=== PATIENT | male | born 2000 | race Caucasian/White ===

== ENCOUNTER 2018-10-14 12:22 | Emergency (ER) | payer MEDICAID ==
[~2018-10-14] VITALS: Ht 185.4 cm; Wt 73.0 kg
--- NOTE | 2018-10-14 12:33 | NUR ---
PT BIBRA FROM BUS STOP, PT C/O RT HIP PAIN AND RT EAR LAC; PT AAOX4, PT ON MONITOR, VSS, NAD NOTED, PENDING ER PROVIDER JESSIAL
[2018-10-14] MEDS ORDERED: LIDOCAINE 1% INJ 50 ML MDV IJ ONE (12:43)
[2018-10-14] MEDS ORDERED: IV NS 0.9% 1,000 ML BAG IV ONE (13:00)
[2018-10-14 13:01] LABS: BASOPHILS % (AUTO) 0.3 % (0.0-2.0); EOSINOPHILS % (AUTO) 0.4 % (0.0-6.0); HEMATOCRIT 44 % (39-51); LYMPHOCYTES # (AUTO) 1.2 /CMM (0.8-4.8); MEAN CORPUSCULAR HGB CONC 34 g/dl (31.0-36.0); MEAN CORPUSCULAR VOLUME 88 fL (80-96); MONOCYTES # (AUTO) 0.7 /CMM (0.1-1.30); MONOCYTES % (AUTO) 8.1 % (2.0-12.0); NEUTROPHILS % (AUTO) 78.2 % (43.0-81.0); PLATELET COUNT (AUTO) 190 /CMM (150-450); RED BLOOD CELL COUNT(AUTO) 4.99 MIL/uL (4.5-6.0)
[2018-10-14] MEDS ORDERED: BUPIVACAINE 0.5 % PF 150 MG/30 ML VIAL ONE (13:02)
[2018-10-14 13:11] LABS: CALCIUM, SERUM 8.5 mg/dL (8.5-10.1); CREATININE 0.8 mg/dL (0.6-1.3); POTASSIUM 3.7 mmol/L (3.5-5.1)
[2018-10-14 13:17] LABS: ALBUMIN 3.9 g/dL (3.4-5.0); BILIRUBIN,DIRECT 0.1 mg/dL (0.0-0.2); BILIRUBIN,TOTAL 0.3 mg/dL (0.2-1.0); TOTAL PROTEIN, SERUM 7.2 g/dL (6.4-8.2)
[2018-10-14] MEDS ORDERED: BUPIVACAINE 0.5 % PF 150 MG/30 ML VIAL IJ ONE (13:30)
[2018-10-14] MEDS ORDERED: MORPHINE SULFATE INJ 2 MG/ML DISP.SYRIN IV ONE ×3 (13:30→19:30)
[2018-10-14] MEDS ORDERED: TDAP [DIPH/PERTUSSIS/TET] 0.5 ML VIAL IM ONE ×2 (13:30→14:34)
[2018-10-14] MEDS ORDERED: ONDANSETRON HCL/PF 4 MG/2 ML VIAL IV ONE (13:30)
[2018-10-14] MEDS ORDERED: ONDANSETRON HCL/PF 4 MG/2 ML VIAL ONE (13:33)
[2018-10-14] MEDS ORDERED: MORPHINE SULFATE INJ 4 MG/ML DISP.SYRIN ONE ×3 (13:33→19:27)
--- NOTE | 2018-10-14 15:26 | NUR ---
CALLED NURSING SUP. FOR [facility] BED
--- NOTE | 2018-10-14 15:30 | NUR ---
CALLED [facility] EDUCATION COORDINATOR, TRANSFERRED CALL TO [facility] POLICE OFFICER
--- NOTE | 2018-10-14 17:17 | NUR ---
PT REFUSES TO GET UP, STATES "ITS TOO PAINFUL", GUILLERMO WEASAND TRIMMER AWARE
--- NOTE | 2018-10-14 17:27 | NUR ---
CALLED [facility] TRANSFER LINE AND SPOKE WITH ELIZABETH. FAXING CLINICALS TO [phone].
--- NOTE | 2018-10-14 17:28 | NUR ---
CALLED [facility] TRANSFER LINE AND SPOKE WITH GÓMEZ. THEY ARE AT CAPACITY AND UNABLE TO ACCEPT TRANSFER AT THIS TIME.
--- NOTE | 2018-10-14 18:11 | NUR ---
CALLED [facility] AND WAS INFORMED THEY CURRENTLY HAVE NO BEDS BUT WILL UPDATE US
--- NOTE | 2018-10-14 18:46 | NUR ---
SPOKE WITH KWASI AT [facility]. PER KWASI THEIR ORTHOPEDIST RFP WRITER AT [facility] IS UNABLE TO ACCOMMODATE AN ACETABULAR FX AT THIS TIME
--- NOTE | 2018-10-14 18:55 | NUR ---
CALLED [facility] ER AND SPOKE WITH THE SOLDERING TECHNICIAN. FAXED CT ABDOMEN/PELVIS TO [facility] AND AWAITING CALL BACK
--- NOTE | 2018-10-14 19:39 | NUR ---
CALLED [facility] TRANSFER LINE AND WAS INFORMED THEY ARE CURRENTLY AT CAPACITY FOR ADULT TRANSFERS
--- NOTE | 2018-10-14 21:06 | NUR ---
PT REFUSED TO BE TRASNFERED FOR HIGHER LEVEL OF CARE. TROUBLE LOCATER DEGRASSE MADE AWARE. TROUBLE LOCATER DEGRASSE AWARE AND GOING TO SPEAK TO PT.
[2018-10-14] MEDS ORDERED: IBUPROFEN 600 MG TABLET PO ONE ×2 (22:00→22:10)
[2018-10-14] MEDS ORDERED: oxyCODONE/APAP (5/325 MG) 1 UDTAB TABLET PO ONE (22:00)
[2018-10-14] MEDS ORDERED: oxyCODONE/APAP (5/325 MG) 1 UDTAB TABLET ONE (22:10)
--- NOTE | 2018-10-14 23:30 | NUR ---
RECEIVED REPORT FROM JAIR ABARCA ([facility]) FOR [facility]. PT RESTING IN BED WITH NO S/S OF ACUTE DISTRESS NOTED.
--- NOTE | 2018-10-15 00:32 | NUR ---
IT WAS EXPLAINED TO THE PATIENTS MOTHER THAT THE PATIENT REFUSES TO BE TRASNFERRED, HOWEVER, THE MOTHER STATES SHE "WANTS HIM TRANSFERRED TO [facility] WITH 911". THE MOTHER STATES SHE HAD ASKED THE PARAMEDICS TO TRANSPORT THE PATIENT TO [facility] BUT SHE DOES "NOT KNOW WHY HE WAS BROUGHT HERE". PT YELLING TO MOM "MOM JUST SHUT UP, I DONT WANT TO GO TO [place] AND HAVE SURGERY". PATIENT AND HIS MOTHER WERE LEFT ALONE TO COMMUNICATE WHAT THEY WOULD LIKE TO DO IN REGARDS TO THE PATIENTS CARE.
[2018-10-15 00:34] VITALS: BP 121/67
--- NOTE | 2018-10-15 00:40 | NUR ---
PT'S MOTHER BEDSIDE INTERUTPING PATIENT CARE AND SPEAKING OVER WHAT THE PATIENT DESIRES. SECURITY WAS PAGED TO ESCORT PATIENTS MOTHER OUT TO WAITING ROOM.
--- NOTE | 2018-10-15 00:51 | NUR ---
Patient discharged to home in stable condition. Written and verbal after care instructions given. Patient verbalizes understanding of instruction.
--- NOTE | 2018-10-15 00:52 | NUR ---
Patient does not wish to proceed with medical care recommended by DEEP WELL CONTRACTOR. (DEGRASSE). Patient given information related to possible complications, up to and including , which could occur as a result of leaving the hospital at this time. Patient verbalizes understanding of risks involved due to leaving against medical advice. Patient has signed AMA form.
--- NOTE | 2018-10-15 00:52 | NUR ---
PATIENT WAS WHEELCHAIRED OUT TO WAITING ROOM BY SECURITY AND RN. PATIENTS MOTHER WAITING IN THE WAITING ROOM.
== END 2018-10-15 01:03 | disposition left against medical advice (07) ==
LOC: ER 12:26 → UNDOADMIN 16:23 → MED 16:23 → ER 10-15 01:03
DX: S32.491A Other specified fracture of right acetabulum, initial encounter for closed fracture (principal); S01.311A Laceration without foreign body of right ear, initial encounter; F19.10 Other psychoactive substance abuse, uncomplicated; Z59.0 Homelessness; W18.39XA Other fall on same level, initial encounter; Y93.89 Activity, other specified; Y92.480 Sidewalk as the place of occurrence of the external cause; Y99.8 Other external cause status
CPT/HCPCS: 12011; 36415; 70450; 72125; 74176; 80048; 80076; 80307; 85025; 85730; 86850; 96374; 96375; 96376; 99284; A4606; A6402; A6403; J2270 ×3; J2405; J3490 ×2; J7030; 90715; G0480

== ENCOUNTER 2020-04-15 10:15 | Emergency (ER) | payer SELFPAY ==
[~2020-04-15] VITALS: Ht 175.3 cm; Wt 77.1 kg
--- NOTE | 2020-04-15 10:20 | NUR ---
[place] [address] snorted unknown "white powder", 4mg narcan given via intra-nasal by ems SWITCHBOARD WIRER, pinpoint pupil. Patient lethargic, reponsive to stimuli. Changed into gown, attached to the sample case porter. Needs attended, kept comfortable.
[2020-04-15] MEDS ORDERED: IV NS 0.9% 1,000 ML BAG IV ONE (10:30)
[2020-04-15 10:46] LABS: BASOPHILS % (AUTO) 0.2 % (0.0-2.0); EOSINOPHILS % (AUTO) 0.1 % (0.0-6.0); HEMATOCRIT 48 % (39-51); HEMOGLOBIN 16.5 g/dL (13.5-17.5); LYMPHOCYTES % (AUTO) 13.2 % (20.0-44.0); MEAN CORPUSCULAR HGB CONC 34 g/dl (31.0-36.0); MEAN CORPUSCULAR VOLUME 95 fL (80-96); MONOCYTES # (AUTO) 0.7 /CMM (0.1-1.30); MONOCYTES % (AUTO) 9.2 % (2.0-12.0); NEUTROPHILS # (AUTO) 6.1 /CMM (1.8-8.9); NEUTROPHILS % (AUTO) 77.3 % (43.0-81.0); PLATELET COUNT (AUTO) 238 /CMM (150-450); WHITE BLOOD COUNT (AUTO) 7.9 K/uL (4.3-11.0)
[2020-04-15 11:00] LABS: APPEARANCE,URINE Clear (CLEAR); BILIRUBIN,URINE Negative (NEGATIVE); BLOOD, URINE Negative Ery/uL (NEGATIVE); COLOR,URINE Yellow (YELLOW); KETONES,URINE Negative (NEGATIVE); LEUKOCYTE ESTERASE ,URINE Negative (NEGATIVE); NITRITE, URINE Negative (NEGATIVE); PROTEIN,URINE 30 mg/dl (NEGATIVE); UGLUCOSE Negative (NEGATIVE); UROBILINOGEN,URINE 0.2 EU/dL (0.2)
[2020-04-15 11:04] LABS: BACTERIA,URINE Few /HPF (None Seen); SQUAMOUS EPITHELIAL CELL,UR Few /HPF (None Seen)
[2020-04-15 11:20] LABS: ALANINE AMINOTRANSFERASE 34 U/L (12-78); ALBUMIN 3.9 g/dL (3.4-5.0); ALCOHOL, BLOOD 92 mg/dL (0-0); ALKALINE PHOSPHATASE 124 U/L (46-116); ASPARTATE AMINOTRANSFERASE 29 U/L (15-37); BILIRUBIN,DIRECT 0.1 mg/dL (0.0-0.2); BILIRUBIN,TOTAL 0.3 mg/dL (0.2-1.0); CARBON DIOXIDE 27 mmol/L (21-32); CHLORIDE 102 mmol/L (98-107); CREATININE 0.8 mg/dL (0.6-1.3); GLUCOSE 90 mg/dL (74-106); POTASSIUM 3.8 mmol/L (3.5-5.1); SODIUM SERUM 140 mmol/L (136-145); TOTAL PROTEIN, SERUM 7.1 g/dL (6.4-8.2); UREA NITROGEN, BLOOD 6 mg/dL (7-18)
[2020-04-15 11:22] LABS: ACETAMINOPHEN < 10 ug/ml (10-30); SALICYLATE 0.5 mg/dL (2.8-20.0)
--- NOTE | 2020-04-15 13:50 | NUR ---
PATIENT AWAKE, ALERT AND ORIENTED X4, AMBULATORY WITH STEADY GAIT, WALKED TO RESTROOM. NO DISTRESS NOTED. PATIENT DENIES SI/HI. NEEDS ATTENDED. INFORMED DR. FREEMAN.
--- NOTE | 2020-04-15 15:00 | NUR ---
Ambulatory with steady gait. IV removed. Catheter intact and site benign. Pressure and 4x4 applied to site. No bleeding noted. Patient given written and verbal discharge instructions. Patient verbalizes understanding of instructions. Patient is ambulatory with steady gait. Refuses offer of longterm placement. Patient given list of available shelters in surrounding area.
[2020-04-15 15:08] VITALS: BP 110/70
== END 2020-04-15 15:08 | disposition home or self-care (01) ==
LOC: ER 10:17
DX: T43.621A Poisoning by amphetamines, accidental (unintentional), initial encounter (principal); F19.10 Other psychoactive substance abuse, uncomplicated; R94.31 Abnormal electrocardiogram [ECG] [EKG]; Z98.890 Other specified postprocedural states; Z59.0 Homelessness; Y92.89 Other specified places as the place of occurrence of the external cause
CPT/HCPCS: 36415; 71045; 80048; 80076; 80305; 80307; 80329; 81001; 84484; 85025; 93005; 96360; 99285; G0480; J7030; 81000-TC

== ENCOUNTER 2020-05-05 10:58 | Emergency (ER) | payer MEDICAID ==
[~2020-05-05] VITALS: Ht 175.3 cm; Wt 77.1 kg
--- NOTE | 2020-05-05 11:10 | NUR ---
jeri and lapd, from street, suicidal ideation "i want to overdose on drugs". On room air, breathing evenly and unlabored. sitter at bedside for constant monitoring. Will continue to monitor accordingly.
--- NOTE | 2020-05-05 11:11 | NUR ---
called security for wanding
[2020-05-05 11:40] LABS: BASOPHILS # (AUTO) 0.1 /CMM (0.0-0.2); BASOPHILS % (AUTO) 0.9 % (0.0-2.0); EOSINOPHILS % (AUTO) 1.8 % (0.0-6.0); HEMATOCRIT 52 % (39-51); HEMOGLOBIN 17.9 g/dL (13.5-17.5); LYMPHOCYTES # (AUTO) 1.2 /CMM (0.8-4.8); LYMPHOCYTES % (AUTO) 19.3 % (20.0-44.0); MEAN CORPUSCULAR HGB CONC 35 g/dl (31.0-36.0); MEAN CORPUSCULAR VOLUME 95 fL (80-96); MONOCYTES # (AUTO) 0.4 /CMM (0.1-1.30); MONOCYTES % (AUTO) 6.6 % (2.0-12.0); NEUTROPHILS # (AUTO) 4.5 /CMM (1.8-8.9); NEUTROPHILS % (AUTO) 71.4 % (43.0-81.0); PLATELET COUNT (AUTO) 227 /CMM (150-450); RED BLOOD CELL COUNT(AUTO) 5.41 MIL/uL (4.5-6.0); WHITE BLOOD COUNT (AUTO) 6.3 K/uL (4.3-11.0)
[2020-05-05 11:46] LABS: CALCIUM, SERUM 8.3 mg/dL (8.5-10.1); CARBON DIOXIDE 27 mmol/L (21-32); CHLORIDE 103 mmol/L (98-107); CREATININE 0.9 mg/dL (0.6-1.3); GLUCOSE 83 mg/dL (74-106); POTASSIUM 3.5 mmol/L (3.5-5.1); SODIUM SERUM 141 mmol/L (136-145); UREA NITROGEN, BLOOD 9 mg/dL (7-18)
[2020-05-05 11:52] LABS: ACETAMINOPHEN 0 ug/ml (10-30); ALANINE AMINOTRANSFERASE 126 U/L (12-78); ALBUMIN 3.9 g/dL (3.4-5.0); ALCOHOL, BLOOD 257 mg/dL (0-0); ALKALINE PHOSPHATASE 152 U/L (46-116); ASPARTATE AMINOTRANSFERASE 149 U/L (15-37); BILIRUBIN,DIRECT 0.3 mg/dL (0.0-0.2); BILIRUBIN,TOTAL 0.7 mg/dL (0.2-1.0); SALICYLATE < 0.2 mg/dL (2.8-20.0); TOTAL PROTEIN, SERUM 7.5 g/dL (6.4-8.2)
--- NOTE | 2020-05-05 12:30 | NUR ---
ASSESSED PT ON BED ASLEEP EASILY AROSUABLE. NOT IN RESPIRATORY DISTRESS, V/S STABLE. KEPT RESTED AND COMFORTABLE. WILL CONTINUE TO MONITOR.
--- NOTE | 2020-05-05 13:00 | NUR ---
FOOD TRAY PROVIDED.
--- NOTE | 2020-05-05 14:47 | NUR ---
SW attempted to speak with this patient at bedside. Patient was not cooperative at this time. SW to return to assess the patient.
--- NOTE | 2020-05-05 16:15 | NUR ---
This SW called patient's mother Gauri to provide patient's social security number as patient does not remember it. SW was unable to speak with her but left voicemail to this SW direct number and ED directly.
--- NOTE | 2020-05-05 16:22 | NUR ---
SW met with the patient at bedside. Patient was asleep and easily arousable when called by his name. Patient was alert and oriented x4, and receptive to speaking with this SW. Patient was lying in bed but turned to face this SW. Patient has a low tone of voice stating, I am not feeling that well. Patient was in some visible discomfort by closing his eyes and moaning when patient moved too fast. Patient was placed on a 5150 hold by [employer]. Patient is a 19-year-old male. Per patient, he is currently residing with his girlfriend stating, "I don't really want to talk about that." Per patient, he does not want anyone to know where he is right now. Per patient, he called 911 himself because he is feeling suicidal. Per patient, plan is to overdose on drugs, mainly heroin but stated I use everything so whatever comes my way first. Per patient, he has been using heroin for a few months now but could not remember exactly when he started. Patient did not report to this SW of mental health diagnosis. Patient denies auditory and visual hallucinations. Patient denies homicidal ideation. Per patient, he does not work but does receive [employer]. Per patient, could not remember how much he was receiving because he lost his [employer] card. This SW and patient discussed treatment plan. Per patient, he wants to go to a mental health hospital. This SW discussed with the patient voluntary treatment at [facility]. Patient agreeable to voluntary treatment. Plan: SW to follow-up with ER Admitting about patients eligibility regarding presumptive Medical. Addendum: 05/05/20 at 1623 by EDWINA SCHUMACHER SW Patient provided verbal consent to speak to mother Gauri for patient's social security number.
--- NOTE | 2020-05-05 16:23 | NUR ---
This SW spoke with Dr. Nino regarding this patient. This SW assessed the patient and patient is currently feeling suicidal to overdose on drugs. Patient is on a 5150 hold and will need to be cleared by crisis team. Patient agreeable to voluntary treatment at [facility]. Dr. Nino in agreement that patient will need to be seen by crisis team following SW attempt to retrieve Social Security number for insurance purposes.
--- NOTE | 2020-05-05 16:28 | NUR ---
Maintenance Service Supervisor contacted ER Admitting, their report from speaking with the patient, he does not know his social security number and no record of his social security from prior visits. SW to attempt contacting patient mother again .
[2020-05-05 16:45] LABS: APPEARANCE,URINE Clear (CLEAR); BILIRUBIN,URINE Negative (NEGATIVE); BLOOD, URINE Negative Ery/uL (NEGATIVE); COLOR,URINE Yellow (YELLOW); KETONES,URINE 15 (NEGATIVE); LEUKOCYTE ESTERASE ,URINE Negative (NEGATIVE); NITRITE, URINE Negative (NEGATIVE); PROTEIN,URINE 30 mg/dl (NEGATIVE); UGLUCOSE Negative (NEGATIVE); UROBILINOGEN,URINE 0.2 EU/dL (0.2)
--- NOTE | 2020-05-05 16:47 | NUR ---
This SW called patient's mother Gauri to provide patient's social security number as patient does not remember it. SW was unable to speak with her but left voicemail with ED contact information.
--- NOTE | 2020-05-05 16:50 | NUR ---
This SW received a call from patient's mother Gauri . Gauri provided SW with patient's social security number. SW to provide to ED Admitting for presumptive medical.
[2020-05-05 17:01] LABS: BACTERIA,URINE Rare /HPF (None Seen); RBC,URINE NONE SEEN /HPF (0-2); SQUAMOUS EPITHELIAL CELL,UR Few /HPF (None Seen); WBC,URINE NONE SEEN /HPF (0-3)
--- NOTE | 2020-05-05 17:06 | NUR ---
This SW provided VP BIOLOGYJAIR Yoder with update regarding the patient. VP BIOLOGYJAIR Yoder in understanding and will call Animal Ecologist Joellen.
--- NOTE | 2020-05-05 18:07 | NUR ---
ER PHLEB AT BEDSIDE FOR REPEAT ALCOHOL BLOOD.
--- NOTE | 2020-05-05 18:09 | NUR ---
SPOKE WITH MOM,PANCHITO, WILL GIVE HIM A CALL ONCE A CLINICIAN IS DONE WITH BENJAMIN.
--- NOTE | 2020-05-05 20:01 | NUR ---
YOAV ADAM REEL WINDER PAGED FOR PSYCH EVAL.
[2020-05-05] MEDS ORDERED: LORAZEPAM INJ 2 MG/ML VIAL ONE (20:23)
[2020-05-05] MEDS ORDERED: LORAZEPAM 1 MG TABLET PO ONE (20:30)
[2020-05-05] MEDS ORDERED: LORAZEPAM INJ 2 MG/ML VIAL IM ONE (20:30)
--- NOTE | 2020-05-05 20:52 | NUR ---
COVID SWAB SAMPLE COLLECTED AND SENT TO THE LAB.
--- NOTE | 2020-05-05 20:52 | NUR ---
CALLED FOR COVID SWAB
--- NOTE | 2020-05-05 21:24 | NUR ---
CJ CALLED FROM [facility], WAS ABLE TO RECIEVE FAX
--- NOTE | 2020-05-05 22:10 | NUR ---
PER SEAN BOOGIE AT [facility] NO BEDS AVAILABLE AT THIS TIME.
--- NOTE | 2020-05-05 22:25 | NUR ---
CLINICAL FAXED TO [facility] INTAK FRO VOLUNTARY ADMISSION.
--- NOTE | 2020-05-05 23:11 | NUR ---
CALLED LAB FOR COVID RESULT.
--- NOTE | 2020-05-05 23:13 | NUR ---
LAB CALLED REGARDING NEGATIVE COVID RESULT.
--- NOTE | 2020-05-06 03:00 | NUR ---
Patient is resting comfortably in bed with eyes closed. Easily aroused. VSS. Provided with more blankets.
--- NOTE | 2020-05-06 04:00 | NUR ---
PT ACCEPTED AT [facility] ACCEPTING MD TRUJILLO PHONE NUMBER FOR REPORT [phone] EXT. [phone]
--- NOTE | 2020-05-06 04:16 | NUR ---
SPOKE WITH MARITZA JERRY TO MARKETING COORDINATOR IS [phone]
--- NOTE | 2020-05-06 06:42 | NUR ---
REPORT GIVEN TO MICHELLE FOR MARCIAL
[2020-05-06 07:22] VITALS: BP 127/75
--- NOTE | 2020-05-06 07:23 | NUR ---
TRANSPORT AT BEDSIDE REPORT GIVEN TO EMT TRANSPORT.
--- NOTE | 2020-05-06 07:24 | NUR ---
REPROT GIVEN TO TRANSPORT. PT TRANSFERED TO [facility].
== END 2020-05-06 07:26 ==
LOC: ER 11:04
DX: R45.851 Suicidal ideations (principal); F10.229 Alcohol dependence with intoxication, unspecified; F10.239 Alcohol dependence with withdrawal, unspecified; Y90.8 Blood alcohol level of 240 mg/100 ml or more; F41.9 Anxiety disorder, unspecified; R11.2 Nausea with vomiting, unspecified; Z59.0 Homelessness; Z20.828 Contact with and (suspected) exposure to other viral communicable diseases; F15.90 Other stimulant use, unspecified, uncomplicated
CPT/HCPCS: 36415; 80048; 80076; 80305; 80307 ×2; 80329; 81001; 85025; 87426; 96372; 99285; C9803; G0480; J2060; 81000-TC

== ENCOUNTER 2020-06-08 18:55 | Emergency (ER) | payer MEDICAID, OTHER ==
[~2020-06-08] VITALS: Ht 185.4 cm; Wt 77.1 kg
[2020-06-08 19:01] VITALS: BP 126/70
[2020-06-08] MEDS ORDERED: LIDOCAINE 2%-EPI 1:100,000 30 ML VIAL ONE (19:29)
[2020-06-08] MEDS ORDERED: HYDROCODONE/APAP 5/325MG TABLET ONE (19:46)
[2020-06-08] MEDS ORDERED: CEPHALEXIN MONOHYDRATE 500 MG CAPSULE PO ONE (19:46)
[2020-06-08] MEDS: HYDROCODONE/APAP 5/325MG TABLET PO ONE (19:50)
[2020-06-08] MEDS: LIDOCAINE 2%-EPI 1:100,000 30 ML VIAL TP ONE (19:50)
[2020-06-08] MEDS: CEPHALEXIN MONOHYDRATE 500 MG CAPSULE PO ONE (19:50)
== END 2020-06-08 19:51 | disposition home or self-care (01) ==
LOC: ER 18:57
DX: S51.012A Laceration without foreign body of left elbow, initial encounter (principal); S31.114A Laceration without foreign body of abdominal wall, left lower quadrant without penetration into peritoneal cavity, initial encounter; Z98.890 Other specified postprocedural states; Z59.0 Homelessness; W01.110A Fall on same level from slipping, tripping and stumbling with subsequent striking against sharp glass, initial encounter; Y93.9 Activity, unspecified; Y92.89 Other specified places as the place of occurrence of the external cause; Y99.8 Other external cause status
CPT/HCPCS: 12002; 99283; A6403; J3490

== ENCOUNTER 2020-06-22 22:32 | Emergency (ER) | payer MEDICAID ==
[~2020-06-22] VITALS: Ht 188 cm; Wt 77.1 kg
[2020-06-22 22:33] VITALS: BP 132/64
[2020-06-22] MEDS ORDERED: HYDROCODONE/APAP 5/325MG TABLET PO ONE (23:00)
[2020-06-22] MEDS ORDERED: CEPHALEXIN MONOHYDRATE 500 MG CAPSULE PO ONE ×2 (23:00→23:03)
[2020-06-22] MEDS ORDERED: HYDROCODONE/APAP 5/325MG TABLET ONE (23:03)
--- NOTE | 2020-06-22 23:07 | NUR ---
THREE JAY REMOVED FROM L ELBOW PER ORDER
== END 2020-06-22 23:15 | disposition home or self-care (01) ==
LOC: ER 22:39
DX: L03.114 Cellulitis of left upper limb (principal); S51.012D Laceration without foreign body of left elbow, subsequent encounter; Z98.890 Other specified postprocedural states; Z59.0 Homelessness; X58.XXXD Exposure to other specified factors, subsequent encounter